=== PATIENT | male | born 1985 | race African-American/Black ===

== ENCOUNTER 2016-06-16 10:58 | Emergency (ER) | payer SELFPAY ==
[~2016-06-16] VITALS: Ht 172.7 cm; Wt 76.0 kg
[~2016-06-16 10:58] MED LIST: DOXY100C PO
[2016-06-16 11:10] VITALS: BP 132/77; PULSE 70; RESP 16; TEMP 98.7; O2SAT 96
--- NOTE | 2016-06-16 11:53 | PD ---
HPI Chief Complaint: Complaint Time Seen by Provider: 11:25 Travel History International Travel<30 days: No Contact w/Intl Traveler<30days: No Traveled to known affect area: No History of Present Illness HPI This patient complains of some swelling in the right side of the scrotum. He noticed it 2 days ago. No urethral discharge or fever or injury. Symptom severity is mild PFSH Past Medical History Asthma: Yes (As child) Diminished Hearing: No Reproductive: Yes (H/O syphilis, chlamydia ) Integumentary: Yes (Eczema ) Tetanus Vaccination: < 5 Years Influenza Vaccination: Yes Past Surgical History Surgical History: No Previous Surgery Body Medical Devices: HX OF ECZEMA Social History Alcohol Use: Yes (Occ.) Tobacco Use: No Substance Use: No Allergies-Medications (Allergen,Severity, Reaction): Coded Allergies: Neosporin (Verified Allergy, Severe, "Throat closes up", 06/16/16) Reported Meds & Prescriptions Reported Meds & Active Scripts Active No Active Prescriptions or Reported Medications Review of Systems General / Constitutional: No: Fever HENT: No: Headaches Cardiovascular: No: Chest Pain or Discomfort Physical Exam Narrative GASTROINTESTINAL: Abdomen soft, non-tender, nondistended. Positive bowel sounds. No hepato-splenomegaly, or palpable masses. No guarding. SKIN: Focused skin assessment reveals no rash or ulcers. Skin is warm and dry. Palpation shows no induration or nodules. : Circumcised penis without lesions. No testicular tenderness or enlargement. Patient has a vague fullness near the right testicle but distinct from it. I suspect is a varicocele. It is not tender Data Data Last Documented VS Vital Signs Date Time Temp Pulse Resp B/P Pulse Ox O2 Delivery O2 Flow Rate FiO2 06/16/16 11:10 98.7 70 16 132/77 96 MDM Medical Decision Making Medical Screen Exam Complete: Yes Emergency Medical Condition: Yes Medical Record Reviewed: Yes Differential Diagnosis Varicocele, epididymitis, scrotal mass Narrative Course I have reviewed the patient's electronic medical record. I recommend he follow up with urologist for evaluation. I believe he has a varicocele but I advised him that I cannot guarantee with certainty and he should get a urologist follow-up. No indication for antibiotics or emergent imaging Diagnosis Primary Impression: Right varicocele Additional Instructions: The patient was advised to follow up with urologist Med/Other Pt SpecificInfo: Other Scripts No Active Prescriptions or Reported Meds Disposition: 01 DISCHARGE HOME Condition: Stable Santana Matias MD June 16, 2016 11:53
== END 2016-06-16 12:00 | disposition home or self-care (01) ==
LOC: PHED 10:58
DX: I86.1 Scrotal varices (principal); Z87.438 Personal history of other diseases of male genital organs; Z87.2 Personal history of diseases of the skin and subcutaneous tissue
CPT/HCPCS: 99283